=== PATIENT | male | born 1965 | race Caucasian/White ===

== ENCOUNTER 2023-11-09 08:48 | Emergency (ER) | payer BC, SELFPAY ==
--- NOTE | ~2023-11-09 | CT_ITS ---
EXAMINATION: Cta head and neck with and without contrast CLINICAL INFORMATION: Vertigo COMPARISON: None available. TECHNIQUE: Test bolus sequences followed by intravenous administration of 70 mL of Omnipaque 350 contrast. Helical imaging was performed in the axial plane from the skull vertex to the thoracic inlet. Delayed postcontrast imaging of the head was also performed. The data was processed at the medical office technologist workstation for generation of MIP sequences. Angled MIPs and volume rendered reformatted images were also generated at an offline 3D workstation. Stenoses are assessed in accordance with NASCET criteria unless otherwise indicated. This CT examination was performed using dose optimization techniques as appropriate, variously including the following: *Automated exposure control *Adjustment of mA and/or kV according to patient size (this includes techniques or standardized protocols for targeted exams where dose is matched to indication/reason for exam; i.e. extremities or head) *Use of iterative reconstruction technique DLP: 2418 mGy-cm FINDINGS: BRAIN: No acute intracranial hemorrhage or infarct. The oliveira-white matter differentiation is preserved. No midline shift or hydrocephalus. No acute extra-axial fluid collection. The osseous structures are unremarkable. No orbital pathology. The paranasal sinuses and mastoid air cells are clear. There is an extra-axial mass along the left frontoparietal convexity. CTA NECK: Three-vessel aortic arch. The innominate and bilateral subclavian arteries are patent. The origins and cervical segments of the common carotid arteries as well as the common carotid artery bifurcations are patent bilaterally. The cervical segments of the internal carotid arteries are also patent bilaterally. The origins and cervical segments of the vertebral arteries are patent bilaterally. No hemodynamically significant stenosis, dissection, aneurysm. The visualized branches of the external carotid arteries are unremarkable. CTA HEAD: Anterior circulation: The petrous, cavernous, and supraclinoid segments of the internal carotid arteries are patent bilaterally. The major branches of the anterior and middle cerebral arteries as well as anterior communicating artery complex are patent. No large vessel occlusion, saccular aneurysm, dissection. Posterior circulation: The intracranial vertebral arteries are patent bilaterally. The basilar artery is normal in course and caliber. The posterior cerebral and superior cerebellar arteries arise normally from the basilar summit. No aneurysm. On delayed imaging, the venous structures demonstrate normal contrast opacification. No filling defects. No abnormal intraparenchymal enhancement. There is a homogeneously enhancing extra-axial mass along the left frontoparietal convexity measuring 1.5 x 0.5 cm. Soft tissues: No suspicious neck masses or lymphadenopathy. Lungs: Clear. Bones: No acute osseous abnormality. No lytic or blastic osseous lesions. Multilevel degenerative changes of the visualized spine. CT/CT angio head neck IMPRESSION: CT head demonstrates no acute intracranial hemorrhage or edematous territorial infarction. CTA head demonstrates no large vessel occlusion, saccular aneurysm, dissection. Homogeneously enhancing extra-axial mass along the left frontoparietal convexity measuring 1.5 x 0.5 cm, likely representing a meningioma. CTA neck demonstrates no hemodynamically significant stenosis or dissection. Electronically signed by: Fiona Boyle MD 11/09/2023 12:25 PM EDT
[2023-11-09 08:54] VITALS: BP 153/109; PULSE 87; RESP 18; TEMP 36.8; O2SAT 98; BMI 36.1
--- NOTE | 2023-11-09 09:14 | ED.EAR ---
HPI - Ear Problem General Chief complaint: Ear Problems Stated complaint: Ear pain Time Seen by Provider: 11/09/23 08:58 Source: patient, RN notes reviewed and old records reviewed Mode of arrival: ambulatory Limitations: no limitations History of Present Illness ED Provider: JANINE GONZALEZ PA-C HPI Narrative: 58 year old male presents to the ED today for evaluation of left ear pain x3 days. Reports he was seen at Urgent Care yesterday and prescribed ciprodex ear drops which he has been using without relief. Reports pain around his entire right ear, extending into his right neck. Reports minimal drainage from the ear. Denies hearing changes, fever/chills, jaw pain. Denies FB. Denies recent swimming or plane rides. No hx of DM. He also endorses dizziness on waking this morning which came on suddenly while drinking coffee at his mother's house. States I just don't feel right . Admits dizziness has been constant since onset, is not exacerbated with head movements, and feels like he is off balance . He was able to drive himself to the ED and ambulate into the department without difficulty. Denies hx of similar symptoms. Denies history of vertigo. Denies headache, vision changes, speech changes/ difficulty speaking, difficulty ambulating, chest pain, palpitations. Related Data Previous Rx's ?Medication ?Instructions ?Recorded amoxicillin 875 mg-potassium 1 tab PO BID 7 days #14 tabs 11/09/23 clavulanate 125 mg tablet Allergies Allergy/AdvReac Type Severity Reaction Status Date / Time meperidine [From Demerol] Allergy Intermediate Hives Verified 11/09/23 08:56 Review of Systems Review of Systems: Constitutional: No fever, chills, fatigue, night sweats, weight changes ENT/Mouth: No hearing loss, nasal congestion, sinus pain, rhinorrhea, sore throat, +ear pain Eyes: No eye pain, swelling, redness, vision changes, discharge Cardio: No chest pain, palpitations, [place], orthopnea, peripheral edema Pulm: No SOB, cough, sputum, wheezing, dyspnea, hemoptysis GI: No nausea, vomiting, hematemesis, abdominal pain, diarrhea, constipation, hematochezia, melena : No irregular bleeding, dysuria, frequency, urgency, hesitancy, hematuria, flank pain, urinary flow changes, urinary incontinence or retention MSK: No back pain, neck pain, joint pain, myalgias Skin: No lesions, rashes Neuro: No weakness, numbness, paresthesias, LOC, headache, +dizziness Psych: No anxiety/panic, depression, SI/HI, AH/VH All other systems reviewed and are negative. [facility] Past Medical History Attestation statement: The following information was validated with the patient. Source: old records reviewed and nursing notes reviewed Social History Social History Advance Directives: No Advance Directives Information Provided: Yes Do you have a plan to hurt others: No Plan Physical Exam Vital Signs: Vital Signs: Last Vital Signs Temp 98.2 F 11/09/23 08:54 Pulse 87 11/09/23 08:54 Resp 18 11/09/23 08:54 BP 153/109 H 11/09/23 08:54 Pulse Ox 98 11/09/23 08:54 O2 Del Method Room Air 11/09/23 08:54 BMI result Body Mass Index 36.1 Hypertensive to 153/109, vitals otherwise wnl. Const: General: cooperative, healthy appearing, comfortable and no acute distress Orientation/consciousness: patient oriented x3 Limitations: no limitations HEENT: Other: + No pain on manipulation of left pinna or tragus. No mastoid tenderness. Left EAC without erythema, edema or discharge. TM intact without erythema, effusion, or bulging. + Pain on manipulation of right pinna. No mastoid tenderness or protrusion of the auricle. Right EAC erythematous and edematous without noted discharge or bleeding. TM intact, erythematous with noted effusion. Head: Yes normal to inspection, Yes No palpable skull fracture present, Yes normocephalic and Yes atraumatic Ears: hearing grossly normal bilaterally Face and sinus: Yes normal facial exam and Yes sinuses nontender Eyes: General: appearance normal, both eyes and all related structures Pupils: Equal, round and reactive pupils present Neck: Neck: Yes normal visual inspection and Yes no lymphadenopathy Resp: Effort & Inspection: normal respiratory effort and able to speak in complete sentences Auscultation: clear to auscultation bilaterally Cardio: Rate: regular rate Rhythm: regular rhythm Skin: General skin exam: no rashes or lesions noted Neuro: General: patient oriented x3, gait normal, tone normal and no focal motor deficits Cranial nerves: Yes Equal, round and reactive pupils present NIH Stroke Scale Time: 09:00 Level of Consciousness: Alert Level of Consciousness Questions: Answers both questions correctly Level of Consciousness Commands: Performs both tasks correctly Best Gaze: Normal Visual: No visual loss Facial Palsy: Normal Motor Arm (Right): No drift Motor Arm (Left): No drift Motor Leg (Right): No drift Motor Leg (Left): No drift Limb Ataxia: Absent Sensory: Normal Best Language: No aphasia Dysarthia: Normal Extinction and Inattention: No abnormality Score: 0 Course Course Course Narrative: 1259 -- [place] [address], no left shift. No anemia. H&H stable. Chemistry without acute electrolyte abnormality requiring intervention. Random glucose 151. No KAT. CT head/brain without acute intracranial hemorrhage or infarction. CTA neck without stenosis or dissection. CTA head showing incidental finding of hemogeneously enhancing extra-axial mass along the left frontoparietal convexity measuring 1.5 x 0.5 cm, likely representing meningioma. As this is frontoparietal, likely not the cause of patient's symptoms today. will attribute dizziness to inner ear effusion. he does report improvement after receiving toradol, augmentin, IVF, and meclizine. neuro is still intact. > Patients physical exam is consistent with right otitis externa. I do appreciate effusion of the TM so will treat for otitis media as well. > I discussed plan w/ patient. Patient already has ciprodex eardrops- advised to continue use. Will send augmentin to pharmacy for treatment. Advised to take tylenol/ motrin at home for pain/ discomfort. advised he follow up with PCP and or neurologist (referral provided) regarding incidental imaging findings as this will need to be monitored. Patient has remained stable throughout ED visit today. Discussed worrisome signs and symptoms and when to return to the ED. All questions answered at this time. Patient is agreeable with disposition and stable for discharge. Medications Administered Discontinued Medications Generic Name Dose Route Start Last Admin Trade Name Freq PRN Reason Stop Dose Admin Amoxicillin/Clavulanate Potassium 875 mg 11/09/23 09:21 11/09/23 09:40 Amoxicillin/Potassium Clav 875 Mg Tablet PO 11/09/23 09:22 875 mg ONCE ONE Administration Sodium Chloride 1,000 mls @ 999 mls/hr 11/09/23 09:30 11/09/23 11:38 Ns IV 11/09/23 10:30 Infused .Q1H1M MARK Infusion Iohexol 70 ml 11/09/23 12:01 11/09/23 12:01 Iohexol 350 Mg/Ml 100 Ml Infus..Btl IV 11/09/23 12:02 70 ml ONCE ONE Administration Meclizine HCl 25 mg 11/09/23 09:29 11/09/23 09:40 Meclizine Hcl 25 Mg Tablet PO 11/09/23 09:30 25 mg ONCE ONE Administration Medical Decision Making Medical Decision Making [facility] Narrative: 58 year old male presents to the ED today for evaluation of left ear pain x3 days. Patient hypertensive to 153/109, vitals otherwise WNL. He is afebrile. Given exam findings edematous/erythematous right EAC and effusion of right TM, will treat for both otitis media and otitis externa. Dizziness most consistent with peripheral cause (likely vertigo) however given patient's age and lack of similar history, will obtain CT/CT angio head/ neck. Differential diagnoses includes: otitis media, otitis externa. Unlikely mastoiditis, malignant otitis externa. Clinical concern for BPPV vs labrynthitis. No red flag features for central vertigo to include gradual onset, vertical/bidirectional or nonfatigable nystagmus, focal neurologic findings on exam (including inability to ambulate). Presentation not consistent with an acute TECHNICAL WRITER infection, vertebral basilar artery insufficiency, cerebellar hemorrhage or infarction,?intracranial mass or bleed, temporal lobe epilepsy,?MS, trauma, complex migraine headache. Other acute, emergent causes of vertigo are unlikely given at this time. No indication for LP at this time. Plan: PO abx for otitis media, 1L IVF, meclizine, CT head, serial reassessment Differential Diagnosis Differential Diagnoses: The differential diagnosis associated with the presentation includes as above. Admission/Observation Not indicated Lab Data [facility] Lab Attestation statement: I reviewed the patient's lab results. as above. 11/09/23 09:37 11/09/23 09:37 Labs: Lab Results 11/09/23 Range/Units 09:37 WBC 11.3 H (4.8-10.8) X10*3/uL RBC 5.04 (4.60-5.80) X10*6/uL Hgb 15.7 (14.0-18.0) g/dl Hct 45.0 (42.0-52.0) % MCV 89.3 (80.0-98.0) fL MCH 31.2 (27.0-33.0) pg MCHC 34.9 (31.0-36.0) g/dl RDW 12.6 (11.0-16.0) % Plt Count 209 (160-400) X10*3/uL MPV 9.7 (9.4-12.4) fL Immature Gran % (Auto) 0.3 (0.0-0.4) % Neut % (Auto) 67.1 (45-73) % Lymph % (Auto) 21.0 (20-40) % Bertie % (Auto) 9.4 (2-11) % Eos % (Auto) 1.9 (0-4) % Baso % (Auto) 0.3 (0-2) % Lymph # (Auto) 2.4 (1.2-4.9) X10*3/uL Bertie # (Auto) 1.1 (0.1-1.2) X10*3/uL Eos # (Auto) 0.2 (0.0-0.4) X10*3/uL Baso # (Auto) 0.0 (0.0-0.2) X10*3/uL Abs Immat Gran (auto) 0.03 (0.00-0.03) X10*3/uL Absolute Neuts (auto) 7.6 (2.0-8.3) x10*3/uL Absolute Nucleated RBC 0.000 (0.0-0.012) X10*3/uL Nucleated RBC % (auto) 0.0 (0.0-0.2) /100WBC Sodium 140 (135-145) mmol/L Potassium 4.3 (3.3-5.1) mmol/L Chloride 108 (96-108) mmol/L Carbon Dioxide 22 (22-29) mmol/L Anion Gap 14 (12-20) BUN 11 (9-16) mg/dL Creatinine 0.86 (0.5-1.4) mg/dL Estim Creat Clear Calc 116.3 Estimated GFR > 60 Random Glucose 151 H (60-115) mg/dL Calcium 9.5 (8.4-10.2) mg/dL Total Bilirubin 0.7 (0.0-1.0) mg/dL AST 28 (5-37) U/L ALT 56 H (0-40) U/L Alkaline Phosphatase 77 (39-117) U/L Total Protein 6.8 (6.5-8.0) g/dL Albumin 4.1 (3.5-5.0) g/dL Independent Interpretation I performed an independent interpretation of an: CT Scan Interpretation: CT head/ brain without intracranial bleed, agree with radiologist's interpretation. CT angio head/neck without obvious dissection, agree with radiologist's interpretation. Radiology Impression Discussion of test interpretation with radiology: I have reviewed the radiologist's reading. Radiologist Impression: EXAMINATION: Cta head and neck with and without contrast CLINICAL INFORMATION: Vertigo COMPARISON: None available. TECHNIQUE: Test bolus sequences followed by intravenous administration of 70 mL of Omnipaque 350 contrast. Helical imaging was performed in the axial plane from the skull vertex to the thoracic inlet. Delayed postcontrast imaging of the head was also performed. The data was processed at the nuclear medicine pet ct technologist workstation for generation of MIP sequences. Angled MIPs and volume rendered reformatted images were also generated at an offline 3D workstation. Stenoses are assessed in accordance with NASCET criteria unless otherwise indicated. This CT examination was performed using dose optimization techniques as appropriate, variously including the following: *Automated exposure control *Adjustment of mA and/or kV according to patient size (this includes techniques or standardized protocols for targeted exams where dose is matched to indication/reason for exam; i.e. extremities or head) *Use of iterative reconstruction technique DLP: 2418 mGy-cm FINDINGS: BRAIN: No acute intracranial hemorrhage or infarct. The oliveira-white matter differentiation is preserved. No midline shift or hydrocephalus. No acute extra-axial fluid collection. The osseous structures are unremarkable. No orbital pathology. The paranasal sinuses and mastoid air cells are clear. There is an extra-axial mass along the left frontoparietal convexity. CTA NECK: Three-vessel aortic arch. The innominate and bilateral subclavian arteries are patent. The origins and cervical segments of the common carotid arteries as well as the common carotid artery bifurcations are patent bilaterally. The cervical segments of the internal carotid arteries are also patent bilaterally. The origins and cervical segments of the vertebral arteries are patent bilaterally. No hemodynamically significant stenosis, dissection, aneurysm. The visualized branches of the external carotid arteries are unremarkable. CTA HEAD: Anterior circulation: The petrous, cavernous, and supraclinoid segments of the internal carotid arteries are patent bilaterally. The major branches of the anterior and middle cerebral arteries as well as anterior communicating artery complex are patent. No large vessel occlusion, saccular aneurysm, dissection. Posterior circulation: The intracranial vertebral arteries are patent bilaterally. The basilar artery is normal in course and caliber. The posterior cerebral and superior cerebellar arteries arise normally from the basilar summit. No aneurysm. On delayed imaging, the venous structures demonstrate normal contrast opacification. No filling defects. No abnormal intraparenchymal enhancement. There is a homogeneously enhancing extra-axial mass along the left frontoparietal convexity measuring 1.5 x 0.5 cm. Soft tissues: No suspicious neck masses or lymphadenopathy. Lungs: Clear. Bones: No acute osseous abnormality. No lytic or blastic osseous lesions. Multilevel degenerative changes of the visualized spine. CT/CT angio head neck IMPRESSION: CT head demonstrates no acute intracranial hemorrhage or edematous territorial infarction. CTA head demonstrates no large vessel occlusion, saccular aneurysm, dissection. Homogeneously enhancing extra-axial mass along the left frontoparietal convexity measuring 1.5 x 0.5 cm, likely representing a meningioma. CTA neck demonstrates no hemodynamically significant stenosis or dissection. Electronically signed by: Fiona Boyle MD 11/09/2023 12:25 PM EDT External Record Review External record reviewed: Inpatient record Prescription Management I considered prescription management with: Pain Medication (tylenol/ motrin) and Antibiotic (augmentin) Chronic Conditions Patient?s care impacted by: Hypertension Social Determinants Patient?s care significantly limited by Social Determinants of Health including: Other Social Determinant of Health Critical Care Time Critical Care Time Critical Care Time: No Discharge Plan Discharge Clinical Impression: Dizziness Otitis externa Qualifiers: Chronicity: acute Laterality: right Otitis media Qualifiers: Chronicity: acute Laterality: right Recurrence: non-recurrent Patient Disposition: Home, Self-Care Instructions: Otitis Externa (ED), How to Use Ear Drops (ED), Ear Infection (ED), Dizziness (ED) Additional Instructions: You were evaluated in the ED today for right ear pain and dizziness. As discussed, the CT of your brain shows an incidental finding of 1.5 x 0.5 cm mass to frontoparietal region likely meningioma. Please follow up with PCP and/or neurologist (referral provided) as this will need to be monitored however it is unlikely the cause of your symptoms today. You are noted to have an infection of both the outer and the inner ear. This is likely contributing to your dizziness. Treatment for this is with antibiotics. Please continue using Ciprodex ear drops as prescribed. I am adding an oral antibiotic called amoxicillin which has been sent to your pharmacy for treatment. Please take this twice daily (every 12 hours) for 7 days to treat ear infection. Do not stop taking this early or skip any doses as this may cause infection to persist or worsen. If you spike a fever at home, please alternate Tylenol and ibuprofen. I am also sending you meclizine which you make take as needed for dizziness. You received a dose of this in ED today. Please follow up with your PCP as needed. Return with new or worsening symptoms. In the case of an emergency call 911. Prescriptions: New amoxicillin-pot clavulanate 875-125 mg tablet 1 tab PO BID 7 Days Qty: 14 0RF Referrals: Redd Miguel MD [Primary Care Provider] - Print Language: Romansh
[2023-11-09] MEDS: 0.9 % Sodium Chloride 1,000 ML 999 ML IV (09:36)
[2023-11-09] MEDS: Meclizine HCl 25 MG TABLET PO (09:40)
[2023-11-09] MEDS: Amoxicillin/Potassium Clav 875 MG TABLET PO (09:40)
[2023-11-09 09:46] LABS: MANUAL DIFF FLAG NO
[2023-11-09 09:47] LABS: Basophils Percent Auto 0.3 % (0-2); Eosinophils Absolute Auto 0.2 X10*3/uL (0.0-0.4); Eosinophils Percent Auto 1.9 % (0-4); Hemoglobin 15.7 g/dl (14.0-18.0); Imm Gran Abs Auto 0.03 X10*3/uL (0.00-0.03); Imm Gran Pct Auto 0.3 % (0.0-0.4); Lymphocytes Absolute Auto 2.4 X10*3/uL (1.2-4.9); Mean Corpuscular HGB Conc 34.9 g/dl (31.0-36.0); Mean Corpuscular Hemoglobin 31.2 pg (27.0-33.0); Mean Corpuscular Volume 89.3 fL (80.0-98.0); Mean Platelet Volume 9.7 fL (9.4-12.4); Monocytes Absolute Auto 1.1 X10*3/uL (0.1-1.2); Monocytes Percent Auto 9.4 % (2-11); Neutrophils Absolute Auto 7.6 x10*3/uL (2.0-8.3); Neutrophils Percent Auto 67.1 % (45-73); Platelet Count 209 X10*3/uL (160-400); Red Blood Count 5.04 X10*6/uL (4.60-5.80); Red Cell Distribution Width 12.6 % (11.0-16.0); White Blood Count 11.3 X10*3/uL (4.8-10.8)
[2023-11-09 10:03] LABS: Alanine Aminotransferase 56 U/L (0-40); Albumin Level 4.1 g/dL (3.5-5.0); Alkaline Phosphatase 77 U/L (39-117); Anion Gap 14 (12-20); Aspartate Amino Transferase 28 U/L (5-37); Bilirubin Total 0.7 mg/dL (0.0-1.0); Blood Urea Nitrogen 11 mg/dL (9-16); Calcium 9.5 mg/dL (8.4-10.2); Carbon Dioxide 22 mmol/L (22-29); Chloride 108 mmol/L (96-108); Creatinine Clr Calc Pharmacy 116.3; Estimated Glomerular Filt Rate > 60; Glucose Random 151 mg/dL (60-115); Potassium 4.3 mmol/L (3.3-5.1); Sodium 140 mmol/L (135-145); Total Protein 6.8 g/dL (6.5-8.0)
[2023-11-09] MEDS: iohexoL 350 MG/ML 100 ML INFUS..BTL 70 ML IV (12:01)
[2023-11-09] MEDS: Ketorolac Tromethamine 30 MG/ML VIAL IM (13:16)
[2023-11-09 13:19] VITALS: BP 153/109; PULSE 87; RESP 18; TEMP 36.8; O2SAT 98
== END 2023-11-09 13:20 | disposition home or self-care (01) ==
PROVIDERS: Physician Assistant Medical; Emergency Provider Emergency Medicine; PCP Internal Medicine
DX: R42 Dizziness and giddiness (principal); H60.91 Unspecified otitis externa, right ear; H66.91 Otitis media, unspecified, right ear; Z79.899 Other long term (current) drug therapy
CPT/HCPCS: 36415; 70496; 70498; 80053; 85025; 96360; 96372; 99283; 99284; J1885; Q9967

== ENCOUNTER 2024-04-25 01:50 | Emergency (ER) | payer BC, SELFPAY ==
--- NOTE | ~2024-04-25 | CT_ITS ---
CLINICAL HISTORY: flank pain CT abdomen and pelvis without contrast Comparison: None Findings: The lung bases are clear. Hepatic steatosis. Gallbladder and biliary tree, pancreas, spleen, adrenal glands and kidneys demonstrate no acute process. No radiopaque stones or hydronephrosis. No ureteral dilation. No bowel obstruction, pneumoperitoneum, or pneumatosis. Bladder is decompressed. Prostate is mildly enlarged. No fluid collections or adenopathy. Nondilated vasculature. Normal appendix. No acute fracture. IMPRESSION: Hepatic steatosis. No radiopaque renal stones or evidence of obstructive uropathy. This document has been electronically signed by: Susan Olmedo MD on 04/25/2024 07:52:11
[2024-04-25 02:15] VITALS: BP 152/100; PULSE 92; RESP 16; TEMP 36.8; O2SAT 95; BMI 35.4
[2024-04-25 02:54] LABS: Basophils Absolute Auto 0.1 X10*3/uL (0.0-0.2); Basophils Percent Auto 0.3 % (0-2); Eosinophils Absolute Auto 0.3 X10*3/uL (0.0-0.4); Eosinophils Percent Auto 1.6 % (0-4); Hematocrit 45.2 % (42.0-52.0); Hemoglobin 15.9 g/dl (14.0-18.0); Imm Gran Abs Auto 0.06 X10*3/uL (0.00-0.03); Imm Gran Pct Auto 0.3 % (0.0-0.4); Lymphocytes Absolute Auto 2.8 X10*3/uL (1.2-4.9); Lymphocytes Percent Auto 15.1 % (20-40); MANUAL DIFF FLAG NO; Mean Corpuscular HGB Conc 35.2 g/dl (31.0-36.0); Mean Corpuscular Hemoglobin 31.8 pg (27.0-33.0); Mean Corpuscular Volume 90.4 fL (80.0-98.0); Mean Platelet Volume 9.9 fL (9.4-12.4); Monocytes Absolute Auto 1.5 X10*3/uL (0.1-1.2); Monocytes Percent Auto 8.2 % (2-11); Neutrophils Absolute Auto 13.5 x10*3/uL (2.0-8.3); Neutrophils Percent Auto 74.5 % (45-73); Platelet Count 242 X10*3/uL (160-400); Red Cell Distribution Width 12.8 % (11.0-16.0); White Blood Count 18.2 X10*3/uL (4.8-10.8)
[2024-04-25 02:56] LABS: Appearance Urine Clear; Color Urine Yellow; Glucose Urine UA Negative (Negative); Leukocyte Esterase Urine Large (3+) (Negative); Nitrite Urine Negative (Negative); PH 7.5 (5.0-9.0); UMIC TRIGGER UACC YES; Urine Blood Large (3+) (Negative); Urine Ketones Negative (Negative); Urine Protein 30 (1+) mg/dL (Neg-Trace)
[2024-04-25 03:13] LABS: Alanine Aminotransferase 51 U/L (0-40); Albumin Level 4.2 g/dL (3.5-5.0); Anion Gap 15 (12-20); Aspartate Amino Transferase 31 U/L (5-37); Bilirubin Total 0.5 mg/dL (0.0-1.0); Blood Urea Nitrogen 14 mg/dL (9-16); Calcium 9.3 mg/dL (8.4-10.2); Carbon Dioxide 23 mmol/L (22-29); Chloride 106 mmol/L (96-108); Creatinine Clr Calc Pharmacy 97.1; Estimated Glomerular Filt Rate > 60; Glucose Random 137 mg/dL (60-115); Potassium 4.1 mmol/L (3.3-5.1); Sodium 140 mmol/L (135-145); Total Protein 7.6 g/dL (6.5-8.0)
[2024-04-25 03:15] LABS: Alkaline Phosphatase 63 U/L (39-117)
[2024-04-25 03:23] LABS: Bacteria Urine Trace (None Seen); Hyaline Casts Urine 0-2 /LPF (0-2); RBC Urine >20 /HPF (0-2); Squamous Epithelial Cell Urine 0-2 /HPF (0-2); UACC Culture Trigger YES; WBC Urine >50 /HPF (0-5)
--- OUTSIDE RECORDS SUMMARY | 2024-04-25 04:18 | XMS_ITS | Data Portability ---
Author Organization [facility], [address] Address [address] [place] [address] Assessment No assessment recorded. Plan of Treatment Reminders Order Date Submit Date Provider Last Modified By Organization Details Last Modified Time Details Appointments None recorded. Lab None recorded. Referral None recorded. Procedures None recorded. Surgeries None recorded. Imaging None recorded. Medication Orders Ciprodex 0.3 %-0.1 % ear drops,susp ension 2023 024 [facility], [address] [place] [address], [address], 13:05:16 Patient TargetsNo targets recorded. Patient Instructions Encounter Date Encounter Id Patient Instructions Last Modified By Organization Details Last Modified Time 08/06/2023 [id number] You have been diagnosed with a External Ear infection and early erysipelas. Suggestions to help with your discomfort and recovery include: 1. Laying the effected ear on a heating pad or applying a warm rice bag or something warm. 2. Motrin and Tylenol Regularly - this will help with pain and inflammation of the Eustachian Tube - this is very important for a speedy recovery. 3. Antihistamine like Benedryl - will help with swelling. 4. Staying Hydrated If you develop any of the following Symptoms I would be seen again - I would recommend the ER 1. Fever > 101.0 2. Stiff Neck 3. Pain in the skull behind the Ear. 4. Worsening Pain 5. Bleeding from the Ear 6. Severe Sore Throat. 7. Severe Headache Antibiotics typically take 4-5 days to start working so do the above to help with your symptoms. Probiotics are important while taking antibiotics - I recommend Florastor Make sure you finish the full course of the antibiotics - if you don't this can lead to antibiotic resistance. Thank you for using [facility] today - and don't hesitate to contact our office if you have any concerns or questions. [email or web address] Not available 08/06/2023 13:05:00 Reason for Referral None Reported. Problems Name Problem SNOMED Code Status Onset Date Resolution Date Notes Provider Name and Address Organization Details Recorded Time Hypotensive therapy Active 024 Rebekah Hansent quang, [place] - [facility] 12:51:01 Problem Notes None recorded. Medical Equipment None Reported. Allergies Allergen ID Allergen Name Allergen Category Reaction Reaction Severity Criticality Documentation Date Start Date Code Code System Note Provider Name and Address Organization Details Recorded Time 566913 Demerol medicatio n Not available Not available Not available 08/06/2023 79283 1 RxNorm Rebekah del rio, PA - [facility] 12:49:59 Medications Name Sig Start Date Stop Date Status Note LastModified by Organization Details LastModified Time Ciprodex 0.3 %-0.1 % ear drops,suspen kasey INSTILL 4 DROPS INTO AFFECTED EAR(S) BY OTIC ROUTE 2 TIMES PER DAY FOR 7 DAYS 024 active Not Available Not Available Not Avai lable lisinopril active Not Available Not Av ailable Not Available metoprolol succinate active Not Available Not Available No t Available Vitals Date Recorded Body height Body mass index (BMI) Body weight Body temperature Respiratory rate Heart rate Pain severity - 0-10 verbal numeric rating [Score] - Reported Oxygen saturation Oxygen saturation in Arterial blood by Pulse oximetry Systolic blood pressure Diastolic blood pressure Systolic blood pressure Diastolic blood pressure Provider Name and Address Organization Details Last Updated DateTime 175.26 cm 34.7 kg/m2 475168. 21 g 97.8 [degF] 18 /min 99 /min 0 98 % 98 % 160 mm[Hg] 100 mm[Hg] 153 mm[Hg] 99 mm[Hg] Rebekah Victorulet PA - [facility] 12:54:41 Social History Question Answer Notes LastModified by Organizat ion Details LastModified Time Tobacco Smoking Status Never Smoker Rebekah Hansent null, PA - [facility] 08/06/2023 12:51:32 What Is Your Level Of Alcohol Consumption? None Information not available 08/06/2023 Have You Had Direct Contact, Or Contact During Intimacy, With Monkeypox Rash, Scabs, Or Body Fluids From A Person With Monkeypox? No Information not available 08/06/2023 What Was The Date Of Your Most Recent Tobacco Screening? 08/06/2023 Information not available 08/06/2023 Do You Use Any Illicit Or Recreational Drugs? No Information not available 08/06/2023 Have You Recently Traveled Abroad? No Information not available 08/06/2023 Do You Or Have You Ever Used Any Other Forms Of Tobacco Or Nicotine? No Information not available 08/06/2023 Sex: Unknown Functional Status None recorded. Mental Status None recorded. Family History Relationship Description Onset Age of this Age Resolved Age Notes LastModified by Organization Details LastModified Time Father No current problems or disability Not available 08/05 12:51:04 Mother No current problems or disability Not available 08/05 12:51:04 Medical History No medical history recorded. Past Encounters Encounter ID Performer Location Encounter Start Date Encounter Closed Date Diagnosis/Indication Diagnosis SNOMED-CT Code Diagnosis ICD10 Code Diagnosis Note [id number] [address] [address] 09/07/2021 18:52:17 09/07/2021 21:06:27 [id number] [facility] [address] [facility] [address] [place] [address] 08/06/2023 12:31:48 08/06/2023 13:11:02 Otitis externa of left ear [id number] 493318 H60.92 Dysfunctio n of eustachian tube 73634530 H69.92 Health Concerns Section Related Observation LastModified by Organization Detai ls LastModified Time None Recorded Concern Status LastModified by Organization Details LastModified Time None Recorded Advance Directives Directive None Recorded Payers Encounter Date Sequence Insurance Name Policy Number Policy Ewing Covered Member ID Ewing Member ID Guarantor Name 09/07/2021 1 [facility] [id number] Loy Serrano [id number] Loy Serrano 08/06/2023 1 [facility] [id number] Loy Serrano [id number] Loy Serrano Notes Date Note Type Note Provider Name and Address Organization Details Recorded Time 08/06/2023 text/html Ear Pain Brief HPIReported bypatient.Notes:58 y.o male pt presents with left ear discomfort with clogged hearing and itching in the canal. Pt denies dizziness or discharge. NITISH MCELROY [address] [place], [address], PA - [facility] 08/06/2023 18:02:34
[2024-04-25 05:41] VITALS: BP 161/88; PULSE 95; RESP 16; TEMP 36.3; O2SAT 98
--- NOTE | 2024-04-25 07:02 | ED_ITS ---
HPI - Male Genitourinary General Chief complaint: Urogenital-Male Stated complaint: Uro Gen male Time Seen by Provider: 04/25/24 06:46 Source: patient Mode of arrival: ambulatory Limitations: no limitations History of Present Illness ED Provider: Elke Nguyen PA-C HPI Narrative: Patient is a 58 year old assigned male at with no reported medical history presenting to the emergency department today with difficulty urinating and painful urination. Patient states that he has been having a hard time urinating, he feels the pressure to go but feels he really has to strain to go and when he does, it hurts. Patient states that he noticed some blood in his urine. Patient denies any dizziness, lightheadedness, abdominal pain, nausea, vomiting, fever, chills, blurry vision, double vision, loss of vision, chest pain, difficulty breathing, shortness of breath, back pain, night sweats, syncope or a near syncopal episode, recent trauma or falls, bowel incontinence, bladder incontinence, or any other complaints at this time. Related Data Previous Rx's ?Medication ?Instructions ?Recorded amoxicillin 875 mg-potassium 1 tab PO BID 7 days #14 tabs 11/09/23 clavulanate 125 mg tablet cefuroxime axetil 250 mg tablet 250 mg PO BID 7 days #14 tabs 04/25/24 Allergies Allergy/AdvReac Type Severity Reaction Status Date / Time meperidine [From Demerol] Allergy Intermediate Hives Verified 04/25/24 02:15 Review of Systems 2 Constitutional: Constitutional: Reports no additional constitutional complaints, Denies chills, Denies fever(s) and Denies night sweats Eyes: Eyes: Reports no additional eye complaints, Denies blurry vision, Denies change in vision, Denies diplopia, Denies eye discharge, Denies loss of vision and Denies eye pain ENT: Denies dizziness Cardiovascular: Cardiovascular: Reports no additional cardiovascular complaints, Denies chest pain, Denies lightheadedness, Denies Loss of Consciousness and Denies dyspnea Respiratory: Respiratory: Reports no additional respiratory complaints and Denies dyspnea Gastrointestinal: Gastrointestinal: Reports no additional gastrointestinal complaints, Denies abdominal pain, Denies melena, Denies hematochezia, Denies change in bowel habits and Denies change in stool character Genitourinary: Genitourinary: Reports no additional male genitourinary complaints, Reports hematuria, Denies oliguria, Reports difficulty urinating, Reports dysuria, Denies urinary frequency, Denies urinary hesitancy, Denies urinary incontinence and Reports urinary urgency Musculoskeletal: Musculoskeletal: Reports no additional musculoskeletal complaints, Denies numbness and Denies tingling Neurologic: Denies dizziness, Denies loss of vision, Denies numbness and Denies tingling Psychiatric: Psychiatric: Reports no additional psychiatric complaints Endocrine: Endocrine: Reports no additional endocrine complaints Hematologic/Lymphatic: Hematologic/Lymphatic: Reports no additional hematologic/lymphatic complaints Allergic/Immunologic: Allergic/Immunologic: Reports no additional allergic/immunologic complaints [facility] Past Medical History Attestation statement: The following information was validated with the patient. Source: old records reviewed and nursing notes reviewed Social History Social History Advance Directives: No Advance Directives Information Provided: Yes Do you have a plan to hurt others: No Plan Physical Exam 2 Vital Signs: Vital Signs: Last Vital Signs Temp 97.4 F 04/25/24 05:41 Pulse 95 04/25/24 05:41 Resp 16 04/25/24 05:41 BP 161/88 H 04/25/24 05:41 Pulse Ox 98 04/25/24 05:41 O2 Del Method Room Air 04/25/24 05:41 BMI result Body Mass Index 35.4 Const: General: cooperative, no acute distress, alert and awake Nutritional Appearance: well nourished Orientation/consciousness: patient oriented x3 Limitations: no limitations HEENT: Head: Yes normal to inspection and Yes atraumatic Ears: hearing grossly normal bilaterally and external ears normal General nose exam: Normal external nose present, no nasal discharge noted and no epistaxis Face and sinus: Yes normal facial exam, No abrasion and No laceration Mouth: Normal oral and palatal mucosa present, no drooling and no muffled voice Eyes: General: appearance normal, both eyes and all related structures P eriorbital: periorbital findings normal Eyelids: Yes eyelids normal C onjunctivae: conjunctivae normal Pupils: Equal, round and reactive pupils present EOM: EOMs intact bilaterally Neck: Neck: Yes normal visual inspection, Yes full ROM and Yes no lymphadenopathy Chest: Chest palpation & inspection: normal inspection of the chest Resp: Effort & Inspection: normal respiratory effort and able to speak in complete sentences GI: Inspection: Yes normal to inspection Neuro: General: patient oriented x3, moves all extremities and CN's II-XI intact bilaterally Cranial nerves: Yes Equal, round and reactive pupils present Cognition (Neuro): normal cognition Extrem: General: Yes normal to inspection, Yes full ROM and Yes capillary refill normal Psych: Appearance: grossly normal Mental Status: mental status grossly normal Affect: normal affect Attitude: cooperative Thought process: N ormal thought process present Thought content: Normal thought content present Insight: Good insight present (Psych) Medications Administered Discontinued Medications Generic Name Dose Route Start Last Admin Trade Name Eliudq PRN Reason Stop Dose Admin Ceftriaxone Sodium 1 gm 04/25/24 07:03 04/25/24 08:15 Ceftriaxone Sodium 1 Gm Vial IVPUSH 04/25/24 07:04 1 gm ONCE ONE Administration Sodium Chloride 1,000 mls @ 999 mls/hr 04/25/24 07:15 04/25/24 08:15 Ns IV 04/25/24 08:15 999 mls/hr .Q1H1M MARK Administration Ketorolac Tromethamine 15 mg 04/25/24 07:03 04/25/24 08:15 Ketorolac Tromethamine 15 Mg/Ml Vial IVPUSH 04/25/24 07:04 15 mg ONCE ONE Administration Medical Decision Making Medical Decision Making [facility] Narrative: Patient is a 58 year old assigned male at with no reported medical history presenting to the emergency department today with difficulty urinating and painful urination. Patient's physical exam was unremarkable. Patient's blood work showed an elevated WBC count of 18.2 but were otherwise unremarkable. Patient's urine showed evidence of infection. Patient's CT abd/pelvis showed no acute process. I explained my physical exam findings as well as all test results to the patient. I answered all questions asked by the patient. Patient stated that while he was here and urinated, he noticed something come out of his urine that looked like a possible kidney stone. I stressed the importance of the patient taking his medication as directed (either prescribed or as the over the counter packaging recommends). I stressed the importance of the patient following up with his primary care provider and a urologist. I stressed the importance of the patient returning to the emergency department immediately if his symptoms were to worsen or if he were to develop any dizziness, shortness of breath, difficulty breathing, chest pain, blurry vision, loss of vision, nausea, vomiting, abdominal pain, fever, chills, back pain, or any other complaints. Patient verbalized agreement and understanding with this treatment plan and discharge. Differential Diagnosis Differential Diagnoses: The differential diagnosis associated with the presentation includes Kidney stone UTI Admission/Observation Consideration of admission/observation: Escalation of care including admission/observation considered Patient would have been admitted to the hospital had his work up had any findings where hospital admission was appropriate and his clinical presentation warranted hospital admission. Lab Data [facility] Lab Attestation statement: I reviewed the patient's lab results. My interpretation of these results are in the [facility] Rationale portion of this note. 04/25/24 02:47 04/25/24 02:47 Labs: Lab Results 04/25/24 04/25/24 Range/Units 02:47 02:49 WBC 18.2 H (4.8-10.8) X10*3/uL RBC 5.00 (4.60-5.80) X10*6/uL Hgb 15.9 (14.0-18.0) g/dl Hct 45.2 (42.0-52.0) % MCV 90.4 (80.0-98.0) fL MCH 31.8 (27.0-33.0) pg MCHC 35.2 (31.0-36.0) g/dl RDW 12.8 (11.0-16.0) % Plt Count 242 (160-400) X10*3/uL MPV 9.9 (9.4-12.4) fL Immature Gran % (Auto) 0.3 (0.0-0.4) % Neut % (Auto) 74.5 H (45-73) % Lymph % (Auto) 15.1 L (20-40) % [place] % (Auto) 8.2 (2-11) % Eos % (Auto) 1.6 (0-4) % Baso % (Auto) 0.3 (0-2) % Lymph # (Auto) 2.8 (1.2-4.9) X10*3/uL [place] # (Auto) 1.5 H (0.1-1.2) X10*3/uL Eos # (Auto) 0.3 (0.0-0.4) X10*3/uL Baso # (Auto) 0.1 (0.0-0.2) X10*3/uL Abs Immat Gran (auto) 0.06 H (0.00-0.03) X10*3/uL Absolute Neuts (auto) 13.5 H (2.0-8.3) x10*3/uL Absolute Nucleated RBC 0.000 (0.0-0.012) X10*3/uL Nucleated RBC % (auto) 0.0 (0.0-0.2) /100WBC Sodium 140 (135-145) mmol/L Potassium 4.1 (3.3-5.1) mmol/L Chloride 106 (96-108) mmol/L Carbon Dioxide 23 (22-29) mmol/L Anion Gap 15 (12-20) BUN 14 (9-16) mg/dL Creatinine 1.02 (0.5-1.4) mg/dL Estim Creat Clear Calc 97.1 Estimated GFR > 60 Random Glucose 137 H (60-115) mg/dL Calcium 9.3 (8.4-10.2) mg/dL Total Bilirubin 0.5 (0.0-1.0) mg/dL AST 31 (5-37) U/L ALT 51 H (0-40) U/L Alkaline Phosphatase 63 (39-117) U/L Total Protein 7.6 (6.5-8.0) g/dL Albumin 4.2 (3.5-5.0) g/dL Urine Color Yellow Urine Appearance Clear Urine pH 7.5 (5.0-9.0) Ur Specific [place] 1.010 (1.005-1.025) Urine Protein 30 (1+) H (Neg-Trace) mg/dL Urine Glucose (UA) Negative (Negative) mg/dL Urine Ketones Negative (Negative) mg/dL Urine Blood Large (3+) H (Negative) Urine Nitrite Negative (Negative) Ur Leukocyte Esterase Large (3+) H (Negative) Urine RBC >20 H (0-2) /HPF Urine WBC >50 H (0-5) /HPF Ur Squamous Epith Cells 0-2 (0-2) /HPF Urine Bacteria Trace (None Seen) Hyaline Casts 0-2 (0-2) /LPF Independent Interpretation I performed an independent interpretation of an: CT Scan Interpretation: My interpretation is in agreement with the radiologist's impression of this imaging study. L Report Number: [id number]: Total DLP = 775.00 mGy-cm CLINICAL HISTORY: flank pain CT abdomen and pelvis without contrast Comparison: None Findings: The lung bases are clear. Hepatic steatosis. Gallbladder and biliary tree, pancreas, spleen, adrenal glands and kidneys demonstrate no acute process. No radiopaque stones or hydronephrosis. No ureteral dilation. No bowel obstruction, pneumoperitoneum, or pneumatosis. Bladder is decompressed. Prostate is mildly enlarged. No fluid collections or adenopathy. Nondilated vasculature. Normal appendix. No acute fracture. IMPRESSION: Hepatic steatosis. No radiopaque renal stones or evidence of obstructive uropathy. This document has been electronically signed by: Susan Olmedo MD on 04/25/2024 07:52:11 Dictated By: Susan Olmedo MD Signed By: Electronically signed by Susan Olmedo MD 04/25/24 0753 Radiology Impression Discussion of test interpretation with radiology: I have reviewed the radiologist's reading. Prescription Management I considered prescription management with: Antibiotic (patient prescribed an antibiotic) Discharge Plan Discharge Clinical Impression: Urinary tract infection Patient Disposition: Home, Self-Care Instructions: Urinary Tract Infection in Men (DC) Additional Instructions: Your CT scan today showed no evidence of an obstructing kidney stone. However, given your exam, urine findings, and lab findings - I am suspicious that you passed a kidney stone. Your urine does appear to be infected - please take your antibiotic as prescribed. Your STI testing is pending and will return sometime tomorrow - if it is p ositive we will call you. You may also check our results on the patient portal for which I have provided instructions below. Follow up with your primary care provider and a urologist. Return to the emergency department immediately if your symptoms worsen or if you develop any dizziness, shortness of breath, difficulty breathing, chest pain, blurry vision, loss of vision, nausea, vomiting, abdominal pain, fever, chills, back pain, or any other complaints. Please see the information below about our Patient Portal. If you are not yet enrolled in the [facility] Patient Portal, you will receive an enrollment email invitation following your visit to any [facility] [place] setting. You may also self-enroll in the Patient Portal by visiting our website: [email or web address] The following information is required to access the Patient Portal: - Your [facility] [place] Number - Your personal home email address (must match what is in your electronic medical record, Registration staff can assist with this) - Name - Date of Capabilities of the Patient Portal: - Message some providers - View upcoming appointments - Access your health summary, medical history, and visit history - View current conditions and allergies - View procedure and lab results - View your medications, including guidelines, side effects, and precautions - Complete pre-appointment questionnaires requested by your provider - Ready summary reports of your office visits and procedures To access the Patient Portal Mobile [employer], follow these directions: - Search [employer] in the [employer] Store or [employer] - Download the Selena - Search for [facility] - Enter your login/password Prescriptions: New cefuroxime axetil 250 mg tablet 250 mg PO BID 7 Days Qty: 14 0RF No Action amoxicillin-pot clavulanate 875-125 mg tablet 1 tab PO BID 7 Days Qty: 14 0RF Referrals: [facility] [Provider Group] (Call to establish and follow up with a urologist for your UTI and possible passed kidney stone.) Redd Miguel MD [Primary Care Provider] - Stand Alone Forms: Work/School Release Print Language: Czech
[2024-04-25] MEDS: cefTRIAXone sodium 1 GM VIAL IVPUSH (08:15)
[2024-04-25] MEDS: Ketorolac Tromethamine 15 MG/ML VIAL IVPUSH (08:15)
[2024-04-25] MEDS: 0.9 % Sodium Chloride 1,000 ML 999 ML IV (08:15)
[2024-04-25 09:22] VITALS: BP 152/77; PULSE 90; RESP 18; TEMP 36.6; O2SAT 98
[2024-04-25 09:42] LABS: CT PCR NOT DETECTED (Not Detect.); NG PCR NOT DETECTED (Not Detect.)
== END 2024-04-25 09:22 | disposition home or self-care (01) ==
PROVIDERS: Physician Assistant Medical; Emergency Provider Emergency Medicine; PCP Internal Medicine
DX: N39.0 Urinary tract infection, site not specified (principal); R33.9 Retention of urine, unspecified; R30.0 Dysuria; R31.9 Hematuria, unspecified; R10.2 Pelvic and perineal pain; Z79.899 Other long term (current) drug therapy
CPT/HCPCS: 36415; 74176; 80053; 81001; 85025; 87086; 87088; 87186; 87491; 87591; 96374; 96375; 99284; J0696; J1885

== ENCOUNTER → 2024-04-25 07:03 | Outpatient (BNV) | payer BC, SELFPAY | PROVIDERS: Emergency Provider Emergency Medicine; PCP Internal Medicine; Visit Provider Radiology Diagnostic Radiology | DX: K76.0 Fatty (change of) liver, not elsewhere classified (principal); N20.0 Calculus of kidney | CPT/HCPCS: 74176 ==

== ENCOUNTER 2024-06-17 14:33 | Outpatient (AMB) | payer BC, SELFPAY ==
--- NOTE | 2024-06-17 14:43 | A.OFFVIS_ITS ---
Intake Visit Reasons: Kidney Stones Intake Note: New Patient presents for initial visit for kidney stones Urology Medications: none Blood Thinner: none Day Care Assistant Required: No Accompanied by: Self / Same As Patient Allergies meperidine [From Demerol] Allergy (Intermediate, Verified 06/17/24 15:12) Hives Medication List - Last Reconciled 06/17/24 by EDVIN Salinas metoprolol succinate ER 25 mg PO DAILY ramipril 10 mg PO DAILY HPI Comments Details: Loy is a very pleasant 59-year-old male patient of Dr. Miguel. He has a past medical history of hypertension. In discussion with the patient today he reports having seeked emergency room care a proximally 2 months ago for dysuria and difficulty urinating he had been experiencing. In review of patient's chart it appears a CT was ordered and performed. These results were communicated and reviewed with the patient today. 05/11 kidneys demonstrate no acute process. No renal stones, hydronephrosis or ureteral dilatation noted. The bladder is decompressed. Prostate is mildly enlarged. It appears urine culture 05/11 noted E coli. He reports having completed antibiotic therapy as prescribed by ER physician. He reports approximately 2 weeks after ER visit lower urinary tract symptoms significantly improved. We discussed urinary tract infection verses prostatitis. We discussed enlarged prostate noted on recent imaging. In office urinalysis results reviewed with the patient today. He reports having RIKKI as well as PSAs drawn with PCP. We discussed signing medical release form to obtain PSAs from PCP for continuity of care. He denies urinary urgency, urinary frequency, incontinence, nocturia, hematuria, dysuria, foul smelling urine, changes to urinary stream, flank pain, fever, and or chills. He is happy with his current voiding parameters. Plan I recommended ongoing surveillance for benign prostatic hyperplasia, emphasizing the regular monitoring of PSA levels and coordination with the primary care physician for reviews. 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 Follow up in six months unless conditions warrant earlier review. Patient was informed and verbally consented to the use of an ambient scribe for clinic note documentation during this visit. Discussion Notes I advised the patient on the implications of benign prostatic hyperplasia, including potential urinary symptoms. We discussed the importance of regular PSA testing to monitor his prostate health, and I explained prostatitis and urinary tract infections and effects on urinary symptoms and sexual activity, underscoring the importance of prompt treatment if symptoms recur. Lifestyle advice was provided, suggesting breaks during long drives to avoid urinary rete ntion. I reinforced a six-month follow-up plan to reevaluate prostate health and adjustments depending on symptoms. The patient expressed understanding and agreed with the proposed management plan. Review of Systems Const All systems reviewed & are unremarkable except as noted in HPI and below Physical Exam Const General: cooperative, healthy appearing, comfortable, no acute distress, well developed, alert and awake Nutritional Appearance: overweight Orientation/consciousness: patient oriented x3 Limitations: no limitations HEENT Head: Yes normal to inspection, Yes normocephalic and Yes atraumatic Ears: hearing grossly normal bilaterally Eyes General: appearance normal, both eyes and all related structures Neck Neck: Yes normal visual inspection and Yes trachea midline Chest Chest palpation & inspection: normal inspection of the chest Resp Effort & Inspection: normal respiratory effort and able to speak in complete sentences Cardio Rate: regular rate GI Inspection: Yes normal to inspection General: Yes no CVA tenderness Back/Spine/Pelvis Back: no CVA tenderness Skin General skin exam: no rashes or lesions noted Neuro General: patient oriented x3 Extrem General: Yes normal to inspection Psych Appearance: grossly normal and well kempt Mental Status: mental status grossly normal Speech and movement: Normal speech and movement present and Clear speech present Affect: normal affect Attitude: cooperative Thought process: Normal thought process present Thought content: Normal thought content present Insight: Fair insight present (Psych) Judgement: Fair judgement present (Psych) Results AMB Urinalysis, Automated UA Leukoctes 0 Amilcar/uL Last Edit by Vivi Lange on 06/17/24 15:03 UA Nitrite Last Edit by Vivi Lange on 06/17/24 15:03 UA Urobilinogen 0.2 mg/dL Last Edit by Vivi Lange on 06/17/24 15:03 UA Protein 15 mg/dL Last Edit by Stevenyce Tuyetkatarzyna on 06/17/24 15:03 UA pH 6.0 Last Edit by Vivi Tuyetkatarzyna on 06/17/24 15:03 UA Blood 0 Seth/uL Last Edit by Vivi Lange on 06/17/24 15:03 UA Specific [place] 1.025 Last Edit by Vivi Tuyetkatarzyna on 06/17/24 15:03 UA Ketone Last Edit by Vivi Lange on 06/17/24 15:03 UA Bilirubin 0 mg/dL Last Edit by Vivi Lange on 06/17/24 15:03 UA Glucose 0 mg/dL Last Edit by Vivi Tuyetkatarzyna on 06/17/24 15:03 Results Reviewed Results Reviewed: Laboratory Last Values Urine pH (Auto) 6.0 06/17/24 15:02 Specific [place] (Auto) 1.025 06/17/24 15:02 Urine Protein (Auto) 15 mg/dL 06/17/24 15:02 Glucose (UA)(Auto) 0 mg/dL 06/17/24 15:02 Urine Blood (Auto) 0 Seth/uL 06/17/24 15:02 Urine Bilirubin (Auto) 0 mg/dL 06/17/24 15:02 Urine Urobilinogen (Auto) 0.2 mg/dL 06/17/24 15:02 Leukocyte Esterase (Auto) 0 Amilcar/uL 06/17/24 15:02 Date of Service: 04/25/24 Procedure(s): CT abdomen pelvis wo IV con Findings: The lung bases are clear. Hepatic steatosis. Gallbladder and biliary tree, pancreas, spleen, adrenal glands and kidneys demonstrate no acute process. No radiopaque stones or hydronephrosis. No ureteral dilation. No bowel obstruction, pneumoperitoneum, or pneumatosis. Bladder is decompressed. Prostate is mildly enlarged. No fluid collections or adenopathy. Nondilated vasculature. Normal appendix. No acute fracture. IMPRESSION: Hepatic steatosis. No radiopaque renal stones or evidence of obstructive uropathy. Assessment & Plan Assessment & Plan (1) Enlarged prostate: Code(s): N40.0 - Benign prostatic hyperplasia without lower urinary tract symptoms Category: Medical (2) Urinary tract infection: Code(s): N39.0 - Urinary tract infection, site not specified Category: Medical Plan In office urinalysis results reviewed with the patient today; as noted above. We discussed potential causes of urinary tract infections and prostatitis. Patient currently denies any bothersome urinary issues or concerns. He reports be happy with current voiding parameters. We discussed enlarged prostate noted on imaging Medical release form signed will attempt to obtain previous PSAs for continuity of care. Follow-up in 6 months with PVR; or sooner with any issues, concerns, and or questions. Orders: Orders AMB Urinalysis Automated Today Z13.9 - Encounter for screening, unspecified Patient Instructions: The patient had an opportunity to ask questions regarding the treatment plan. All questions were answered. Physical exam, labs, and imaging were discussed and reviewed in detail. As well as risks, benefits, and discussion of treatment choices. No major barriers to understanding were identified. The patient expressed understanding and agreement with the above treatment plan. The patient was made aware they should contact our office by phone for worsening of their current condition, the appearance of new symptoms, or with any questions or concerns. Compliance is encouraged with any medications and follow up testing that is ordered. It is a privilege to be allowed the opportunity to participate in? your urological care.? Again, if you have any questions or concerns If you have any questions or concerns please do not hesitate to contact me. The office is [phone]. This note is constructed using voice recognition software. While every effort has been made to ensure accuracy security business analyst errors may have been included. Yours sincerely, KALYANI Salinas Coding Level of Care Code New Pt Level 3 (13798) Diagnoses Enlarged prostate N40.0 Urinary tract infection N39.0
--- OUTSIDE RECORDS SUMMARY | 2024-06-17 16:03 | XMS_ITS | Data Portability ---
Author Organization [facility], [address] Address [address] [place] [address] Assessment No assessment recorded. Plan of Treatment Reminders Order Date Submit Date Provider Last Modified By Organization Details Last Modified Time Details Appointments None recorded. Lab None recorded. Referral None recorded. Procedures None recorded. Surgeries None recorded. Imaging None recorded. Medication Orders Ciprodex 0.3 %-0.1 % ear drops,susp ension 2023 024 [facility], [address] [place] [address], [address], 13:05:16 Patient TargetsNo targets recorded. Patient Instructions Encounter Date Encounter Id Patient Instructions Last Modified By Organization Details Last Modified Time 08/06/2023 [id number] You have been diagnosed with a External [...] if you have any concerns or questions. [email or web address] Not available 08/06/2023 13:05:00 Reason for Referral [...] Name and Address Organization Details Recorded Time 156506 Demerol medicatio n Not available Not available Not available 08/06/2023 [id number] [facility] Rebekah [place], [place] - [...] Last Updated DateTime 175.26 cm 34.7 kg/m2 024120. 21 g 97.8 [degF] 18 /min 99 [...] SNOMED-CT Code Diagnosis ICD10 Code Diagnosis Note [id number] [address] [address] 09/07/2021 18:52:17 09/07/2021 21:06:27 [id number] [facility] [address] [facility] [address] [place] [address] 08/06/2023 12:31:48 08/06/2023 13:11:02 Otitis externa of left ear [id number] 056808 H60.92 Dysfunctio n of eustachian tube 09203883 H69.92 Health Concerns Section Related Observation LastModified by Organization Detai ls LastModified Time None Recorded Concern Status LastModified by Organization Details LastModified Time None Recorded Advance Directives Directive None Recorded Payers Encounter Date Sequence Insurance Name Policy Number Policy Ewing Covered Member ID Ewing Member ID Guarantor Name 09/07/2021 1 [facility]: [facility] [id number] Loy Serrano [id number] Loy Serrano 08/06/2023 1 [facility]: [facility] [id number] Loy Serrano [id number] Loy Serrano Notes Date Note Type Note Provider Name and Address Organization Details Recorded Time 08/06/2023 text/html Ear Pain Brief HPIReported bypatient.Notes:58 y.o male pt presents with left ear discomfort with clogged hearing and itching in the canal. Pt denies dizziness or discharge. NITISH MCELROY [address] [place], [address], [place] - [facility] 08/06/2023 18:02:34
== END 2024-06-17 15:11 | disposition home or self-care (01) ==
LOC: HO.HUSH 14:33
PROVIDERS: PCP Internal Medicine; Visit Provider Nurse Practitioner Family
DX: N40.0 Benign prostatic hyperplasia without lower urinary tract symptoms (principal); N39.0 Urinary tract infection, site not specified; Z13.9 Encounter for screening, unspecified
CPT/HCPCS: 99203

== ENCOUNTER → 2024-06-17 14:33 | Outpatient (BNVA) | payer BC, SELFPAY | PROVIDERS: PCP Internal Medicine; Visit Provider Nurse Practitioner Family | DX: N40.0 Benign prostatic hyperplasia without lower urinary tract symptoms (principal); N39.0 Urinary tract infection, site not specified | CPT/HCPCS: 81003 ==

== ENCOUNTER 2024-12-20 15:40 | Outpatient (AMB) | payer BC, SELFPAY ==
--- NOTE | 2024-12-20 15:49 | A.OFFVIS_ITS ---
Intake Visit Reasons: 6m/PVR Intake Note: Patient is present for 6M/PVR Urology Medication:NONE Antibiotic Allergy:NONE Blood Thinner:NONE TODAY'S PVR:16ML'S Technical Training Instructor Required: No Allergies meperidine (From Demerol) Allergy (Intermediate, Verified 12/20/24 16:09) Hives Medication List - Last Reconciled 12/20/24 by ALLEN SalinasP- metoprolol succinate ER 25 mg PO DAILY ramipril 10 mg PO DAILY HPI Comments Details: Loy is a very pleasant 59-year-old male patient of Dr. Miguel. He has a past medical history of hypertension. He presents to the office today for follow-up of his lower urinary tract symptoms and previous urinary tract infection. In discussion with the patient today he reports he has had no bothersome urinary issues or concerns since his last office visit here approximately 6 months ago. He denies having had any UTI like symptoms. Previous workup has included CT abdomen and pelvis without IV contrast 05/11 that noted kidneys demonstrate no acute process. No renal stones, hydronephrosis or ureteral dilatation noted. The bladder is decompressed. Prostate is mildly enlarged. Previous urine culture 05/11 noted E coli. Previous PSAs were obtained from PCP office since last office visit these results were reviewed as noted and trended below: PSA: 01/03 0.5, 08/06 1.3, 03/09 0.5 In office urinalysis results reviewed with the patient today. PVR 16 mL. He reports he is due for his annual visit within the next few months with his PCP and will have annual PSA as planned. He denies urinary urgency, urinary frequency, incontinence, nocturia, hematuria, dysuria, foul smelling urine, changes to urinary stream, flank pain, fever, and or chills. He is happy with his current voiding parameters. All questions were answered. He otherwise offers no other issues or concerns at this time. Review of Systems Const All systems reviewed & are unremarkable except as noted in HPI and below Physical Exam Const General: cooperative, healthy appearing, comfortable, no acute distress, well developed, alert and awake Orientation/consciousness: patient oriented x3 Limitations: no limitations HEENT Head: Yes normal to inspection, Yes normocephalic and Yes atraumatic Ears: hearing grossly normal bilaterally Eyes General: appearance normal, both eyes and all related structures Neck Neck: Yes normal visual inspection and Yes trachea midline Chest Chest palpation & inspection: normal inspection of the chest Resp Effort & Inspection: normal respiratory effort and able to speak in complete sentences Cardio Rate: regular rate GI Inspection: Yes normal to inspection General: Yes no CVA tenderness Back/Spine/Pelvis Back: no CVA tenderness Skin General skin exam: no rashes or lesions noted Neuro General: patient oriented x3 Extrem General: Yes normal to inspection Psych Appearance: grossly normal and well kempt Mental Status: mental status grossly normal Speech and movement: Normal speech and movement present and Clear speech present Affect: normal affect Attitude: cooperative Thought process: Normal thought process present Thought content: Normal thought content present Insight: Fair insight present (Psych) Judgement: Fair judgement present (Psych) Office Procedures Post Void Residual Post Residual Void Post Void Residual (PVR): 16 [id number] Void Residual by ultrasound Results AMB Urinalysis, Automated UA Leukoctes 0 Amilcar/uL Last Edit by JESSICA Arana on 12/20/24 16:00 UA Nitrite Negative Last Edit by JESSICA Arana on 12/20/24 16:00 UA Urobilinogen 0.2 mg/dL Last Edit by JESSICA Arana on 12/20/24 16:0 0 UA Protein 0 mg/dL Last Edit by JESSICA Arana on 12/20/24 16:00 UA pH 6.0 Last Edit by JESSICA Arana on 12/20/24 16:00 UA Blood 0 Seth/uL Last Edit by JESSICA Arana on 12/20/24 16:00 UA Specific [place] 1.020 Last Edit by JESSICA Arana on 12/20/24 16: 00 UA Ketone Negative Last Edit by JESSICA Arana on 12/20/24 16:00 UA Bilirubin 0 mg/dL Last Edit by JESSICA Arana on 12/20/24 16:00 UA Glucose 0 mg/dL Last Edit by JESISCA Arana on 12/20/24 16:00 Results Reviewed Results Reviewed: Laboratory Last Values Urine pH (Auto) 6.0 12/20/24 15:59 Specific [place] (Auto) 1.020 10/06/25 15:59 Urine Protein (Auto) 0 mg/dL 12/20/24 15:59 Glucose (UA)(Auto) 0 mg/dL 12/20/24 15:59 Urine Ketones (Auto) Negative 12/20/24 15:59 Urine Blood (Auto) 0 Seth/uL 12/20/24 15:59 Urine Nitrite (Auto) Negative 12/20/24 15:59 Urine Bilirubin (Auto) 0 mg/dL 12/20/24 15:59 Urine Urobilinogen (Auto) 0.2 mg/dL 12/20/24 15:59 Leukocyte Esterase (Auto) 0 Amilcar/uL 12/20/24 15:59 Assessment & Plan Assessment & Plan (1) Enlarged prostate: Code(s): N40.0 - Benign prostatic hyperplasia without lower urinary tract symptoms Category: Medical Plan In office urinalysis results reviewed with the patient today; as noted above. PVR 16 mL. He currently denies any bothersome urinary issues or concerns. He reports be happy with current voiding parameters. Will obtain PSA with PCP as planned. RIKKI offered however deferred. All questions were answered. Will continue with surveillance monitoring. Follow-up in 6 months; or sooner with any issues, concerns, and or questions. Orders: Orders AMB Urinalysis Automated Today Z13.9 - Encounter for screening, unspecified Coding Level of Care Code Est Pt Level 3 (15868) Diagnoses Enlarged prostate N40.0 CPT Codes Post Residual Void - PVR CPT Code: 04529-Ldlp Void Residual by ultrasound ([id number])
--- OUTSIDE RECORDS SUMMARY | 2024-12-20 18:01 | XMS_ITS | Clinical Summary ---
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 20 tablet 1 4 Active neomycin-polymyxi n B-hydrocortisone (CORTOMYCIN) 3.5-10,000-1 mg/mL-unit/mL-% otic suspensionIndicat ions:Flu vaccine need,Other infective acute otitis externa of left ear Left ear 4 drops 3 x a day for 5 days 10 mL 1 4 Active metFORMIN (GLUCOPHAGE) 1000 MG tabletIndications :Type 2 diabetes mellitus without complication, without long-term current use of insulin Take 1 tablet (1,000 mg total) by mouth 2 (two) times a day with meals. 60 tablet 3 5 Active metoprolol succinate (TOPROL-XL) 25 MG 24 hr tabletIndications :Essential hypertension Take 1 tablet (25 mg total) by mouth daily. 90 tablet 3 5 Active ramipriL (ALTACE) 10 MG capsuleIndication s:Essential hypertension Take 1 capsule (10 mg total) by mouth daily. 90 capsule 3 5 Active Active Problems Problem Noted Date Diagnosed Date Type 2 diabetes mellitus wit hout complication, without long-term current use of insulin 03/19/2024 Assessment & Plan (03/19/2024 2:45 PM EST): Patient is now diabetic and I counseled him on pathophysiology of type 2 diabetes. Start metformin 1000 mg p.o. twice daily with meals and if diarrhea cut it back to 500 mg twice daily and if still diarrhea will discontinue and find a different antidiabetic. The patient counseled on diabetic diet and we are encouraging him to join weight watchers. Will follow-up in 3 months with a prior hemoglobin A1c. Total of 35 minutes [id number] time taking to discuss diabetes with the patient. We do note that the cholesterol profile with diagnosis of diabetes would require now statin therapy we will hold off on that until we can improve his metrics and then repeat lipid profile. Otitis externa 12/08/2023 Assessment & Plan (12/08/2023 6:34 PM EDT): Left-sided otitis externa, treat with 4 drops 3 times a day in the left ear let sit for 5 minutes per application. Apply for 5 days. If worsening will proceed to p.o. antibiotic. Class 2 severe obesity due t o excess calories with serious comorbidity and body mass index (BMI) of 36.0 to 36.9 in adult 08/26/2023 Assessment & Plan (03/19/2024 2:43 PM EST): With management of type 2 diabetes we might expect the weight to go down. This could prompt us to start a GLP-1 agonist but will start the patient on metformin and counseled him on diabetic diet. Assessment & Plan (08/26/2023 4:19 PM EDT): Counseled patient on weight loss and nutrition regarding obesity. We do note that he is a very muscular build so that the BMI is a little bit over stated but he is overweight for his height for sure. Perhaps 20 or 30 pounds of weight loss would benefit him. Eczema of left external ear 10/19/2021 Assessment & Plan (10/19/2021 4:34 PM EDT): For the itchiness of the ear we will treat as if eczema, Cortisporin Arctic has cortisone solution and that should take away the itchiness apply for 5 days no more. Refill is there. Inflamed internal hemorrhoid 08/28/2020 Assessment & Plan (10/19/2021 4:35 PM EDT): Even though we cannot see the hemorrhoid from what he is describing sounds like inflamed hemorrhoids. Please use Metamucil 1 tablespoon with a tall glass of water each night consistently and then use the Anusol symptomatically post bowel movement. Assessment & Plan (08/28/2020 9:47 AM EDT): Inspection of the perianal region negative for external hemorrhoids negative for anal fissure, no signs of fistula. History and negative findings speak more for internal hemorrhoids inflamed. We will treat as such however I would like the patient to be inspected again by Dr. Mccrary especially if the measures for the inflamed hemorrhoids namely cortisone cream with bowel movements and Metamucil does not work. Referral was made. Dr. Mccrary is at [facility]. 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 Nodule of skin of hand 08/28/2020 Skin lesion of right ear 08/28/2020 Assessment & Plan (08/28/2020 9:49 AM EDT): 1 cm lesion raised about half of a centimeter, no umbilication, no vasculature, skin tone is the same as the surrounding skin tone, no redness, no vesicular. This looks like a dermatofibroma more than it does basal cell CA. I am seeing the patient in January and we can reassess it at that time. Patient assured, patient agrees. Hypertriglyceridemia 07/05/2020 Assessment & Plan (01/22/2022 4:47 PM EST): StatesThere are certainly improvements in the lipid profile so we encouraged him to continue what he is doing and with the exercise can expect even more improvements. Was quite low but Lipase pneumonectomy this time around triglycerides were much better. Assessment & Plan (10/19/2021 4:33 PM EDT): Low HDL plus high LDL plus high triglycerides plus prediabetes makes it concerning that the patient should be on a statin to lower the LDL. For now please start aspirin daily 81 mg and will obtain fasting lipid profile in the next few days and then also in 3 months assuming that there is some improvements made. At that point we can consider a statin. I went over the importance of keeping the cholesterol down in the midst of diabetes regarding inflammation within the artery and collection of plaque, exposure of said plaque with development of a clot causing heart attack. Assessment & Plan (07/05/2020 4:08 PM EDT): He was not fasting so we will obtain a lipid profile the next time we see him and evaluated in the context of his A1c. Counseled patient on low-fat diet. Animal dairy fats accentuated to be reduced. Routine general medical exam ination at a [facility] facility 01/05/2020 Assessment & Plan (08/26/2023 4:18 PM EDT): Exam positive for cerumen impaction please see physical exam for procedure to remove earwax. Counseled the patient to come back for lab work either at [place] or here particular interest on the A1c with previous A1c at 6.5%. We can still follow-up with him in 6 months unless the A1c is elevated and requires attention. Assessment & Plan (07/26/2022 4:04 PM EDT): Blood pressure is a little bit elevated as I mentioned above, he had a lot of sodium before he came in, low-sodium diet reinforced, recheck blood pressure in 6 months. Health maintenance otherwise up-to-date. On exam he had quite a few seborrheic keratoses and skin tags. Skin tags can be removed if they are problematic through dermatology, surgery or plastic surgery. They do tend to come back though. The same is true with the several keratoses, none of which look suspicious appearing. Discussion about weight and getting enough exercise while watching foods. He is more careful these days and his job is more conducive to a more healthy lifestyle. Assessment & Plan (02/05/2021 3:48 PM EST): Patient received his flu shot today. The exam positive for moderate obesity but otherwise the patient's blood pressure is very well controlled and we do not need to make any adjustments to the antihypertensives can monitor in 6 months as we usually do. I will see the patient back in 6 months for follow-up hypertension and we will follow-up prediabetes today and in 6 months. Today we will also check a PSA electrolytes kidney function. 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 Low-sodium diet reinforced. We encouraged him to go back to the gym to help keep his blood sugars down. Assessment & Plan (01/05/2020 3:53 PM EDT): Exam remarkable for a little bit of weight gain since we last saw him. Other than that several seborrheic keratoses but nothing malignant appearing. He had some skin tags around the neck. Counseled patient on obesity. 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 Acute traumatic internal derangement of right kn ee 02/23/2019 Assessment & Plan (02/23/2019 5:24 PM EST): Status post fall right lateral aspect of the knee took up the trauma with resulting swelling around the kneecap and possible effusion behind the kneecap. The ligaments appear to be stable and knee function appears to be stable, patient would like a referral to orthopedics regarding history of DJD knee and so for chronic reasons but also to assess any in regards to this trauma from yesterday. No need to obtain urgent x-ray, patient will apply cold packs 20 minutes on 10 minutes off and may use ibuprofen 600 mg 4 times daily as needed. A neoprene knee brace to stabilize the knee recommended. Essential hypertension 01/04/2019 Assessment & Plan (03/19/2024 2:43 PM EST): Blood pressure well-controlled continue the antihypertensives as such and we note that the electrolytes kidney function well within normal range in February. Assessment & Plan (08/26/2023 4:20 PM EDT): Blood pressure fairly well-controlled we will continue the antihypertensives as such check electrolytes kidney function and follow-up in 6 months. Assessment & Plan (02/24/2023 1:07 PM EST): Blood pressure well-controlled despite the weight gain, continue antihypertensives as such, low-sodium diet reinforced. Assessment & Plan (07/26/2022 4:02 PM EDT): Encouraging the patient to check blood pressure at home for example next week and compare. He can call in the values. When the lab work comes back we can ask him how his blood pressure is doing. Otherwise we will see him back in 6 months. Assessment & Plan (01/22/2022 4:48 PM EST): Hypertension well controlled with current listed antihypertensives. Denies side effects No change to dosing. Low Sodium diet reinforced. Continue to monitor condition. Assessment & Plan (10/19/2021 4:32 PM EDT): Hypertension well controlled with current listed antihypertensives. Denies side effects No change to dosing. Low Sodium diet reinforced. Continue to monitor condition. Obtain electrolytes kidney function, low-sodium diet reinforced, will maintain on the current dosing of ramipril. Assessment & Plan (07/05/2020 4:07 PM EDT): Hypertension well controlled with current listed antihypertensives. Denies side effects No change to dosing. Low Sodium diet reinforced. Continue to monitor condition. We will check electrolytes and kidney function today. Assessment & Plan (01/05/2020 3:54 PM EDT): Hypertension well controlled with current listed antihypertensives. Denies side effects No change to dosing. Low Sodium diet reinforced. Continue to monitor condition. Check electrolytes kidney function in the context of physical and hypertension. Assessment & Plan (01/04/2019 4:32 PM EDT): I saw this patient back in the spring time and I follow him usually twice a year in regards to his blood pressure, 1 of those times for a physical. 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 As such we have him on Toprol-XL 25 mg along with ramipril 10 mg and that seems to be sufficient, I do give him some metoprolol short acting for the DOT physicals to take an hour before hand because he gets so nervous. He tolerates the extra metoprolol with no problem. He has no issues with alcoholism and so that is already beneficial to him. We talked to him again about low-sodium diet and I will obtain a Chem-7 today with particular interest in his electrolytes and kidney function. Prediabetes 01/04/2019 Assessment & Plan (08/26/2023 4:19 PM EDT): Patient is borderline diabetic, will recheck a hemoglobin A1c. Assessment & Plan (02/24/2023 1:06 PM EST): Concern here is that the patient may be in diabetes or uncontrolled diabetes. Right now would like to keep him off of the metformin and see if we can manage his diet and exercise to the point where the A1c is below 6.5%. If at 6.5% or higher we will encourage the patient and get another A1c in about 3 months. Then I might see him sooner, otherwise I can see him back in 6 months. We spent time going over diabetic diet. Assessment & Plan (01/22/2022 4:47 PM EST): In prediabetes is about the same as it was 6 months ago and we can continue to follow it on a 6-month basis, he will continue to work on diet and exercise. Assessment & Plan (10/19/2021 4:33 PM EDT): In more recent assessments its been very close to diabetes or above 6.5%. The threshold is low to start the patient at least on metformin therefore we will see the patient back in 3 months and not 6 irrespective of what the results show. Assessment & Plan (07/05/2020 4:07 PM EDT): No medicines at this time necessary though we will see today how the Covid virus has affected his marker. He has been very good in the past about going to the gym but of course with COVID-19 has been harder, he has a new job as well that seems to be a little bit less active. We will continue to monitor every 6 months though if he is well over 6.5% and may have to call back and start him on Metformin. Assessment & Plan (01/05/2020 3:53 PM EDT): Reassess hemoglobin A1c in the context of this physical and repeat in 6 months. Patient currently not on any medication but also did not require it up until now. Assessment & Plan (01/04/2019 4:33 PM EDT): At times his A1c had been as high as 6.2 to 6.3% though in recent years he exercises a lot and watches his diet and has lost quite a bit of weight when he was much more obese back in 2010. Nonetheless would like to follow the A1c twice a year unless he continues t to exhibit normal labs and then we will need to do it once a year. So we will obtain a A1c today and in 6 months before seeing him for a physical. A diabetic diet should be pursued by this patient and we encouraged him today to maintain on a low-carb diet with a lot of fiber and low saturated fat lean cuts of meat. Class 1 obesity due to exces s calories without serious comorbidity with body mass index (BMI) of 33.0 to 33.9 in adult 01/04/2019 Assessment & Plan (07/26/2022 4:03 PM EDT): counseled the pt on eating a low calorie diet to reduce excess weight. We talked about calorie restriction, weight watchers and exercise as possible to help move weight in the right direction. Assessment & Plan (01/22/2022 4:47 PM EST): counseled the pt on eating a low calorie diet to reduce excess weight. We talked about calorie restriction, weight watchers and exercise as possible to help move weight in the right direction. Assessment & Plan (07/05/2020 4:08 PM EDT): counseled the pt on eating a low calorie diet to reduce excess weight. We talked about calorie restriction, weight watchers and exercise as possible to help move weight in the right direction. Assessment & Plan (01/05/2020 3:51 PM EDT): counseled the pt on eating a low calorie diet to reduce excess weight. We talked about calorie restriction, weight watchers and exercise as possible to help move weight in the right direction. Assessment & Plan (01/04/2019 4:34 PM EDT): Spoke to this patient about weight watchers and elements of weight watchers to reduce weight, we encouraged him to continue with weight loss may be 10 or 15 pounds more from where he is right now. Immunizations Immunization Administration Dates Next Due INFLUENZA, SPLIT VIRUS, TRIVALENT PF 01/11/2024 Influenza Quadrivalent MDCK Preservative Free IM 12/14/2022 Influenza Quadrivalent Prese rvative Free IM 12/21/2021,02/05/2021,01/05/2020,2018 Influenza, Unspecified Formulation 12/15/2017,,01/16/2015 Tdap 06/06/2016 Zoster recombinant 02/16/2023,12/14/2022 Family History Relation Status Comments Father Alive bypass surgery Mother Alive Social History Tobacco Use Types Packs/Day Years Used Date Smoking Tobacco: Former Cigarettes 0.1 3 1 983 - 1986 Passive Smoke Exposure: Past Smokeless Tobacco: Never Tobacco Cessation:Counseling Given: Not Answered Comments:2 cigarettes daily? in high school Alcohol Use Standard Drinks/Week Comments Not Currently 0 (1 standard drink = 0.6 oz pur e alcohol) quit drinking in 1999 Child or Family Care Answer Date Record ed Do you have problems with on e of the following making it difficult for you to work, study, or receive health care? No 08/25/2023 Education Answer Date Recorded Are you interested in help w ith more adult education (for example, completing high school, GED, job training, learning the [place] language, technical skills, or developing parenting skills)? No 08/25/2023 Are you concerned about learning? Not on file 08/25/2023 No 08/25/2023 Yes 08/25/2023 Food Answer Date Recorded Within the past 6 months we worried whether our food would run out before we got money to buy more. Never True 08/25/2023 Within the past 6 months the food we bought just didn't last and we didn't have enough money to get more. Never True Residential Stability Answer Date Recor ded What is your housing situation today? I have kenneth toledo 08/25/2023 How many times have you move d in the past 12 months? Zero (I did not move) 08/25/2023 Paying for Meds Answer Date Recorded Do you have trouble paying for medicines? No 08/25/2023 Paying Utility Bills Answer Date Record ed Do you have trouble paying your heating or elect ricity bill? No 08/25/2023 Transportation Answer Date Recorded Has the lack of transportati on kept you from medical appointments or from getting medications? No 08/25/2023 Unemployment Answer Date Recorded Are you currently unemployed or working on a part-time or temporary basis, and looking for work? No 02/03/2021 Digital Access Answer Date Recorded No 08/25/2023 Yes 08/25/2023 Do you have reliable internet access at home? Ye s 08/25/2023 Do you have a device (e.g., phone, tablet, computer) with a working camera? Yes 08/25/2023 Intimate Partner Violence Answer Date R ecorded Denied Basic Needs Not on file 08/25/2023 In the past 12 months have y ou been in a relationship with a person who hurts, threatens, or tries to control you? No 08/25/2023 Worried food would run out Not on file 08/24 In the past 12 months have y ou been in a relationship with a person who hurts, threatens, or tries to control you? No 08/25/2023 Sex and Gender Information Value Date Recorded Sex Assigned at Male 02/03/2021 8:35 PM EST Legal Sex Male 12:16 PM EDT Gender Identity Male 02/03/2021 8:35 PM EST Sexual Orientation Straight 02/03/2021 8: 35 PM EST Last Filed Vital Signs Vital Sign Reading Time Taken Comments Blood Pressure 118/88 03/19/2024 2:03 PM EST Pulse 72 03/19/2024 2:03 PM EST Temperature 36.4 C (97.5 F) 03/19/2024 2:03 PM EST Respiratory Rate 18 03/19/2024 2:03 PM EST Oxygen Saturation 98% 03/19/2024 2:03 PM EST Inhaled Oxygen Concentration - - Weight 110.6 kg (243 lb 12.8 oz) 03/19/2024 2:03 PM EST Height 171.5 cm (5' 7.52 ) 03/19/2024 2:03 PM ES T Body Mass Index 37.6 03/19/2024 2:03 PM EST Plan of Treatment Health Maintenance Due Date Last Done Comments PNEUMOCOCCAL VACCINES (50+ years) (1 of 2 - PCV) 1985 COLOGUARD 2011 FIT TEST 2011 FOBT 2011 SIGMOIDOSCOPY 2011 VIRTUAL COLONOSCOPY 2011 DIABETIC EYE EXAM 03/19/2024 DEPRESSION SCREENING 08/24/2024 08/25/2023 HEMOGLOBIN A1C 08/24/2024 02/24/2024, 07/15, 07/26/2022, Additional history exists BLOOD PRESSURE 09/16/2024 03/19/2024 INFLUENZA VACCINE (#1) 2024 , 12/14/2022, 12/21/2021, Additional history exists COVID-19 VACCINE ( season) 2024 12/28/2022, 12/21/2021, 04/08/2021, Additional history exists CREATININE LEVEL 02/23/2025 02/24/2024, , 07/26/2022, Additional history exists LIPID PANEL 02/23/2025 02/24/2024, 07/15, 07/26/2022, Additional history exists POTASSIUM LEVEL 02/23/2025 02/24/2024, 10/16, 07/26/2022, Additional history exists Adult Td,Tdap Booster 06/06/2026 06/06/2016 COLONOSCOPY 08/30/2026 08/30/2016, 08/30/2016 COLORECTAL CANCER SCREENING 08/30/2026 HIV ONE-TIME SCREENING (18-65 YEARS) Completed 04/12/2016 HEPATITIS C SCREENING Completed 07/05/2020, 021 ZOSTER VACCINES Completed 02/16/2023, 12/14/2022 SMOKING STATUS SCREENING (Once After 26 Yrs) Completed 03/19/2024 HEPATITIS A VACCINES Aged Out No long er eligible based on patient's age to complete this topic HIB VACCINES Aged Out No longer eligi ble based on patient's age to complete this topic MENINGOCOCCAL VACCINES (ACWY) Aged Out No longer eligible based on patient's age to complete this topic MENINGOCOCCAL VACCINES (B) Aged Out N o longer eligible based on patient's age to complete this topic Medical Devices Not on file Procedures Procedure Name Priority Date/Time Associated Diagnosis Comments HEMOGLOBIN A1C Routine 02/24/2024 1:34 PM EST Prediabetes LIPID PANEL Routine 02/24/2024 1:34 PM EST Routine general medical examination at a [facility] care facility COMPREHENSIVE METABOLIC PANEL Routine 02/24/2024 1:34 PM EST Routine general medical examination at a [facility] facility HEPATITIS C ANTIBODY, QUALITATIVE Routine 07/05/2020 4:05 PM EDT Encounter for hepatitis C screening test for low risk patient HM COLONOSCOPY FOR RESULT ENTRY ONLY Routine 08/30/2016 OUTSIDE HIV Routine 04/12/2016 from Last 3 Months or Most Recently Relevant to Health Maintenance Results * (ABNORMAL) Comprehensive metabolic panel (02/24/2024 1:34 PM EST) SODIUM 138 133 - 146 mmol/L [facility] POTASSIUM 4.1 3.3 - 5.1 mmol/L [facility] CHLORIDE 103 96 - 108 mmol/L [facility] CO2 21 21 - 35 mmol/L [facility] BUN 16 6 - 19 mg/dL [facility] CREATININE 1.00 0.5 - 1.5 mg/dL [facility] GLUCOSE 128(H) 70 - 99 mg/dL [facility] ALBUMIN 4.4 3.9 - 4.8 g/dL [facility] TOTAL PROTEIN 7.3 6.5 - 8.0 g/dL [facility] CALCIUM 9.5 8.4 - 10.3 mg/dL [facility] ALKALINE PHOSPHATASE 75 39 - 117 U/L [facility] TOTAL BILIRUBIN 0.4 0.0 - 1.2 mg/dL [facility] AST 39(H) 0 - 37 U/L [facility] ALT 65(H) 0 - 40 U/L [facility] GLOBULIN 2.9 1 - 4.8 g/dL [facility] EGFR 88 >59 mL/min/1.7 3m2 [facility] Comment:Estimated glomerular filtration rate calculated using the CKD-EPI refit equation. ANION GAP 18 10 - 20 mmol/L [facility] Blood 02/24/2024 1:34 PM EST 02/24/2024 1:40 PM EST us Redd Miguel MD LAB BLOOD ORDERABLES Final Resul t Performing Organization Address [facility] Co de Phone Number [address] [phone] * (ABNORMAL) Hemoglobin A1c (02/24/2024 1:34 PM EST) HEMOGLOBIN A1C 7.3(H) 4.3 - 5.8 % [facility] Blood 02/24/2024 1:34 PM EST 02/24/2024 1:40 PM EST us Redd Miguel MD LAB BLOOD ORDERABLES Final Resul t Performing Organization Address [facility] Co de Phone Number [address] [phone] * (ABNORMAL) Lipid panel (02/24/2024 1:34 PM EST) HDL 33 mg/dL [facility] Comment: Interpretation <40 mg/dL: Low HDL cholesterol (major risk factor for CHD) Greater than or equal to 60 mg/dL: High HDL cholesterol ( negative risk factor for CHD) HDL - cholesterol is affected by a number of factors, e.g. smoking, excerise, hormones, sex and age. CHOLESTEROL 236 0 - 240 mg/dL [facility] TRIGLYCERIDES 164(H) 30 - 160 mg/dL [facility] LDL 170(H) 50 - 129 mg/dL [facility] Comment: LDL levels in terms of risk for coronary heart disease: <100 mg/dL: Optimal 100-129 mg/dL: Near or above optimal 130-159 mg/dL: Borderline high 160-189 mg/dL: High >190 mg/dL: Very High CARDIAC RISK RATIO 7.2(H) 3.4 - 5.0 C [facility] Blood 02/24/2024 1:34 PM EST 02/24/2024 1:40 PM EST Redd Miguel MD LAB BLOOD ORDERABLES Final Resul t Performing Organization Address City/[facility]/ZIP Co de Phone Number [address] [address] * Hepatitis C antibody, qualitative (07/05/2020 4:05 PM EDT) HCV NON-REACTIV E NON-REACTI VE [facility] Blood 07/05/2020 4:05 PM EDT 07/05/2020 4:09 PM EDT Redd Miguel MD LAB BLOOD ORDERABLES Final Resul t Performing Organization Address City/[facility]/ZIP Co de Phone Number [address] [address] * COLONOSCOPY FOR RESULT ENTRY ONLY (08/30/2016) Colonoscopy 10 yr recall Historical Provider HEALTH MAINTENANCE Final Result * OUTSIDE HIV TEST (04/12/2016) HIV - External Neg Historical Arnie ELLIS LAB BLOOD ORDERABLES [place] l Result from Last 3 Months or Most Recently Relevant to Health Maintenance Insurance [facility] [place] [address] [place] [address] [facility] [address] [place] [address] [place] [address] [facility] Care 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 It is not the complete legal health record.[facility]
== END 2024-12-20 16:33 | disposition home or self-care (01) ==
LOC: HO.HUSH 15:41
PROVIDERS: PCP Internal Medicine; Visit Provider Nurse Practitioner Family
DX: Z13.9 Encounter for screening, unspecified (principal); N40.0 Benign prostatic hyperplasia without lower urinary tract symptoms
CPT/HCPCS: 99213

== ENCOUNTER → 2024-12-20 15:40 | Outpatient (BNVA) | payer BC, SELFPAY | PROVIDERS: PCP Internal Medicine; Visit Provider Nurse Practitioner Family | DX: N40.0 Benign prostatic hyperplasia without lower urinary tract symptoms (principal) | CPT/HCPCS: 51798; 81003 ==